=== PATIENT | male | born 1970 | race Asian ===

== ENCOUNTER 2022-03-28 17:32 | Emergency (ER) | payer OTHER ==
[~2022-03-28] VITALS: Ht 152.4 cm; Wt 63.5 kg
[2022-03-28 17:53] VITALS: BP 144/93
[2022-03-28] MEDS ORDERED: HYDROCODONE/APAP 5/325MG TABLET PO ONE (18:30)
[2022-03-28] MEDS ORDERED: NAPROXEN 500 MG TABLET PO SCH (18:30)
[2022-03-28] MEDS ORDERED: NAPROXEN 250 MG TABLET ONE (18:42)
[2022-03-28] MEDS ORDERED: HYDROCODONE/APAP 5/325MG TABLET ONE (18:42)
[2022-03-28] MEDS ORDERED: NALO4SPR BNOSTRILS (19:06)
[2022-03-28] MEDS ORDERED: NAPR-1009 PO (19:06)
--- NOTE | 2022-03-28 21:55 | NUR ---
Patient discharged to home in stable condition. Written and verbal after care instructions given. Patient verbalizes understanding of instruction.
== END 2022-03-28 21:55 | disposition home or self-care (01) ==
LOC: ER 17:39
DX: G89.29 Other chronic pain (principal); M25.561 Pain in right knee; M21.061 Valgus deformity, not elsewhere classified, right knee; M17.11 Unilateral primary osteoarthritis, right knee; F17.200 Nicotine dependence, unspecified, uncomplicated; Z87.39 Personal history of other diseases of the musculoskeletal system and connective tissue; Z59.00 Homelessness unspecified; Z79.899 Other long term (current) drug therapy
CPT/HCPCS: 73564-TC